=== PATIENT | female | born 1990 | race American Indian/Alaskan Native ===

== ENCOUNTER 2021-11-22 11:55 | Emergency (ER) | payer MEDICARE ==
[2021-11-22] MEDS ORDERED: SODIUM CHLORIDE 0.9% 1000 ML 1,000 ML IV ONE (12:13)
[2021-11-22 12:55] LABS: Eosinophils % (Auto) 0.5 % (0.0-4.3); Hematocrit 38.7 % (30.3-42.9); Hemoglobin 12.5 gm/dl (10.1-14.3); Lymphocytes # (Auto) 1.8 K/mm3 (1.2-5.4); Lymphocytes % (Auto) 41.3 % (13.4-35.0); Mean Corpuscular HGB Conc 32 % (30-34); Mean Corpuscular Volume 94 fl (79-97); Monocytes # (Auto) 0.3 K/mm3 (0.0-0.8); Monocytes % (Auto) 7.4 % (0.0-7.3); Platelet Count 252 K/mm3 (140-440); Red Blood Count 4.13 M/mm3 (3.65-5.03); Red Cell Distribution Width 13.3 % (13.2-15.2)
[2021-11-22] MEDS ORDERED: levETIRAcetam 500 MG in DEXTROSE 5% IN WATER 100 ML IV ONE (13:00)
--- NOTE | 2021-11-22 13:00 | Emergency Department Report ---
ED Seizure HPI - General Chief Complaint: Seizure Time Seen by Provider: 11/22/21 12:12 Source: patient Mode of arrival: Stretcher Limitations: No Limitations - History of Present Illness Initial Comments: pt here in stress lab, had seizure, code met called was called in for stress lab for patient having seizure, pt is post ictal no head injury didn;t ting her meds today cause she had stress test takes keppra and lamotrigine - Related Data Allergies Allergy/AdvReac Type Severity Reaction Status Date / Time No Known Allergies Allergy Verified 11/22/21 12:32 ED Review of Systems ROS: Stated complaint: Other details as noted in HPI Constitutional: denies: chills, fever Eyes: denies: eye pain, eye discharge, vision change ENT: denies: ear pain, throat pain Respiratory: denies: cough, shortness of breath, wheezing Cardiovascular: denies: chest pain, palpitations Endocrine: no symptoms reported Gastrointestinal: denies: abdominal pain, nausea, diarrhea Genitourinary: denies: urgency, dysuria, discharge Musculoskeletal: denies: back pain, joint swelling, arthralgia Skin: denies: rash, lesions Neurological: denies: headache, weakness, paresthesias Psychiatric: denies: anxiety, depression Hematological/Lymphatic: denies: easy bleeding, easy bruising ED Past Medical Hx - Past Medical History Previous Medical History?: Yes Hx Hypertension: No Hx Seizures: Yes ED Physical Exam - General Limitations: No Limitations General appearance: alert, in no apparent distress - Head Head exam: Present: atraumatic, normocephalic - Eye Eye exam: Present: normal appearance - ENT ENT exam: Present: mucous membranes moist - Neck Neck exam: Present: normal inspection - Respiratory Respiratory exam: Present: normal lung sounds bilaterally. Absent: respiratory distress - Cardiovascular Cardiovascular Exam: Present: regular rate, normal rhythm. Absent: systolic murmur, diastolic murmur, rubs, gallop - GI/Abdominal GI/Abdominal exam: Present: soft, normal bowel sounds - Extremities Exam Extremities exam: Present: normal inspection - Back Exam Back exam: Present: normal inspection - Neurological Exam Neurological exam: Present: alert, oriented X3 - Psychiatric Psychiatric exam: Present: normal affect, normal mood - Skin Skin exam: Present: warm, dry, intact, normal color. Absent: rash ED Course Vital Signs 11/22/21 11/22/21 11/22/21 11:57 12:00 12:16 Pulse Rate 57 L 90 52 L Respiratory 10 L 12 12 Rate Blood Pressure 122/95 122/95 O2 Sat by Pulse 100 100 Oximetry 11/22/21 12:30 Pulse Rate 56 L Respiratory 16 Rate Blood Pressure 121/82 O2 Sat by Pulse 99 Oximetry ED Medical Decision Making - Lab Data Result diagrams: 11/22/21 12:35 - Radiology Data Radiology results: report reviewed, image reviewed - Medical Decision Making pt refused IV and meds, said she will ting her own meds since she didn;t hakeem thiem this am, awake and alert Critical care attestation.: If time is entered above; I have spent that time in minutes in the direct care of this critically ill patient, excluding procedure time. ED Disposition Clinical Impression: Seizure Disposition: 01 HOME / SELF CARE / HOMELESS Is pt being admited?: No Does the pt Need Aspirin: No Condition: Stable Instructions: Epilepsy Referrals: PRIMARY CARE, [Primary Care Provider] - 3-5 Days
[2021-11-22 13:10] LABS: Alanine Aminotransferase 22 units/L (7-56); Albumin 4.5 g/dL (3.9-5); BUN/Creatinine Ratio 12; Blood Urea Nitrogen 11 mg/dL (7-17); Calcium 9.2 mg/dL (8.4-10.2); Hemolysis Index 4
[2021-11-22 13:47] VITALS: BP 121/85
--- NOTE | 2021-11-23 03:27 | Treadmill Report ---
DATE OF SERVICE: 11/22/2021 TREADMILL STRESS TEST REFERRING PHYSICIAN: Dr. Ramírez. PROTOCOL: The patient was assessed in a postabsorptive state, exercised on a standard [place] protocol treadmill. INTERPRETATION: Resting EKG is normal. Resting blood pressure is 120/82. The patient's resting heart rate is 70. The patient exercised for a total of 10 minutes on a standard [place] protocol treadmill. Test stopped due to fatigue. No chest pain, arrhythmias, or diagnostic ST changes during stress or recovery. No symptoms. Peak blood pressure is 162/90. CONCLUSIONS: 1. Normal exercise treadmill stress test without evidence of diagnostic ST changes, arrhythmias, or chest pain during stress or recovery. 2. Average exercise tolerance. 3. Appropriate heart rate/blood pressure response in recovery. TID: [id number] RECEIPT: [id number] SBM/RES
--- NOTE | 2021-11-25 09:31 | Treadmill Report ---
[facility] Test Date: 2021-11-22 Test Time: 11:12:00 Pat Name: EVY AVINA Department: Room: Gender: F Sheetrock Applicator: Genet Lyons : 1990 Requested By: GIORGIO PATINO Order Number: [id number] Reading MD: Kartik Mann Interpretive Statements see dicated report Electronically Signed On 11-25-2021 9:31:24 EDT by Kartik Mann
== END 2021-11-22 13:21 | disposition home or self-care (01) ==
LOC: ED 11:55
DX: R56.9 Unspecified convulsions (principal); I10 Essential (primary) hypertension
CPT/HCPCS: 36415; 80053; 85025; 93017; 99283; C8929; 80320; 93306; J7060; G0480; J1953